=== PATIENT | female | born 1940 | race Caucasian/White ===

== ENCOUNTER 2025-03-21 10:13 | Emergency (ER) | payer MEDICARE, BC, SELFPAY ==
--- NOTE | ~2025-03-21 | XR_ITS ---
XR chest 1V portable Ordering provider: Jemma Richter PA-C History: 85 years Female with . AMS . Comparison: None. FINDINGS: MEDIASTINUM: The cardiac silhouette is slightly enlarged. Congestive amber. LUNGS: No effusions or pneumothorax. Bilateral interstitial and alveolar opacification suggestive of pulmonary edema versus pneumonia. OTHER: No free air under the diaphragm. Degenerative changes of the spine. IMPRESSION: Bilateral pneumonia versus pulmonary edema. Reviewed, dictated and finalized at location A.
--- NOTE | ~2025-03-21 | CT_ITS ---
CT brain wo con Ordering provider: Valentin Corral MD History: 85 years Female with . seizure, Hx CVA . Comparison: None. Technique: CT of the head without contrast. Radiation reduction technique utilized.The dose-length pr oduct was 605.33 mGy-cm. FINDINGS: BRAIN PARENCHYMA AND CSF SPACES: Mild leukoaraiosis and diffuse cortical atrophy. Mild atheromatous d isease. Hypodensity in both occipital areas more on the right side which may indicate subacute/chroni c infarct. No midline shift, mass effect or hemorrhage. The brain parenchyma and CSF spaces are othe rwise normal. VISUALIZED PARANASAL SINUSES: Bilateral maxillary sinus disease. MASTOIDS: Well aerated. BONES: The bones appear intact. SOFT TISSUES: Visualized nasopharynx is normal. Superficial soft tissues are normal. IMPRESSION: Hypodensities in the right and left occipital lobes which are suggestive of subacute/chronic infarcts . MRI is advised. Brain atrophy with deep white matter ischemic changes. Reviewed, dictated and finalized at location A. IMPRESSION: Hypodensities in the right and left occipital lobes which are suggestive of sub acute/chronic infarcts. MRI is advised. Brain atrophy with deep white matter ischemic changes.
[2025-03-21 10:15] VITALS: BP 167/110; PULSE 154; RESP 23
--- NOTE | 2025-03-21 10:25 | ECG_ITS ---
Test Date: 2025-03-21 10:19:17 Measurements Intervals [place] Rate: 133 P: 0 MA: 0 QRS: -57 QRSD: 89 T: 124 QT: 297 QTc: 443 Interpretive Statements ATRIAL FIBRILLATION WITH RAPID VENTRICULAR RESPONSE WITH ABERRANT CONDUCTION OR VENTRICULAR PREMATURE COMPLEXES LEFT ANTERIOR FASCICULAR BLOCK BORDERLINE ST-T WAVE ABNORMALITY- ANTEROLAT/HIGH LAT LEADS BASELINE ARTIFACT- I, II, III, AVR, AVL, AVF, V3 ABNORMAL ECG No previous ECG available for comparison Electronically Signed On 03-21-2025 13:06:01 CDT by William Langston D.O.
[2025-03-21 10:34] LABS: Basophils Percent Auto 0.1 % (0.2-1.2); Eosinophils Percent Auto 0.1 % (0-4.4); Hematocrit 44.7 % (37.0-47.0); Hemoglobin 14.6 g/dL (12.0-15.0); Immature Granulocyte Absolute 0.05 K/mm3 (0.00-0.031); Immature Granulocyte Percent A 0.3 % (0-0.5); Lymphocytes Absolute Auto 1.92 K/mm3 (0.9-3.2); Lymphocytes Percent Auto 13.4 % (18.3-44.2); Mean Corpuscular HGB Conc 32.7 g/dl (32-36); Mean Corpuscular Hemoglobin 27.2 pg (26-34); Mean Corpuscular Volume 83.4 fl (80-100); Mean Platelet Volume 10.9 fl (7.4-10.4); Monocytes Absolute Auto 0.4 K/mm3 (0.1-0.6); Monocytes Percent Auto 2.7 % (2.6-8.5); Neutrophils Absolute Auto 11.9 K/mm3 (1.3-6.7); Neutrophils Percent Auto 83.4 % (45.5-73.1); Platelet Count Result 301 k/mm3 (150-375); Red Blood Count 5.36 M/mm3 (4.2-5.4); Red Cell Distribution Width 13.8 % (11.5-14.5); White Blood Count 14.3 K/mm3 (4.5-10.0)
[2025-03-21 10:37] VITALS: O2SAT 95
[2025-03-21 10:44] LABS: Alanine Aminotransferase 39 U/L (6-35); Albumin Level 4.4 g/dL (3.5-5.1); Alkaline Phosphatase 94 U/L (38-126); Anion Gap 28 mmol/L (4-12); Bilirubin,Total 0.9 mg/dL (0.2-1.3); Blood Urea Nitrogen 11 mg/dL (7-17); Calcium 10.3 mg/dL (8.4-10.2); Carbon Dioxide 9 mmol/L (22-30); Chloride 103 mmol/L (98-107); Estimated Glomerular Filt Rate > 60; Glucose 269 mg/dL (65-110); Potassium 3.4 mmol/L (3.4-5.0); Sodium 140 mmol/L (137-145); Total Protein 7.6 g/dL (6.3-8.2)
[2025-03-21 11:49] LABS: Aspartate Amino Transferase 57 U/L (14-36)
[2025-03-21] MEDS: SODIUM CHLORIDE 0.9% IV 1,000 ML 999 ML IV CONT (12:12)
[2025-03-21 12:31] LABS: Lactic Acid Reflex 5.2 mmol/L (0.7-2.0)
[2025-03-21] MEDS: MORPHINE SULFATE (*CRX) 4 MG/ML INJ IV PUSH ×2 (12:35→14:49)
[2025-03-21 12:38] LABS: Add Urine Microscopic? YES; Appearance Urine Clear (Clear); Bacteria Urine None Seen /hpf; Bilirubin Urine Negative (Negative); Blood Urine Negative (Negative); Color Urine Yellow (Yellow); Glucose Urine UA 2+ mg/dL (Negative); Ketones Urine 4+ mg/dL (Negative); Leukocyte Esterase Ur Negative LEU/UL (Negative); Nitrate Urine Negative (Negative); Protein Urine 1+ mg/dL (Negative); RBC Urine 0-2 /hpf (0-2); Specific Grav Ur 1.018 (1.001-1.035); Squamous Epithelial Cell Urine Occasional /hpf (Few); WBC Urine 0-5 /hpf (0-3)
[2025-03-21 12:40] VITALS: O2SAT 76; O2SAT 93
--- NOTE | 2025-03-21 12:50 | ED_ITS ---
HPI - Seizure General Chief Complaint: Seizure Stated Complaint: seizure Time Seen by Provider: 03/21/25 10:57 History of Present Illness HPI Narrative: 85-year-old female with history of reported TIA and hypertension presents to the ED via EMS from [facility] with reported possible seizure. Per EMS the patient's right hand was reportedly ?convulsing?. Patient has no history of seizures. She is normally A&O x1 at baseline. Per nursing notes the patient has deteriorated over the past week. Patient was also found to be be in AFib with RVR and route which is new. Arrival to the ED the patient will open her eyes to verbal stimuli but will not follow commands. She is unable to provide any history. She presents with paperwork from [place] the indicates she is DNR/DNI and comfort care only. Related Data Allergies Allergy/AdvReac Type Severity Reaction Status Date / Time No Known Allergies Allergy Verified 03/21/25 10:36 Review of Systems 2 Review of Systems: All systems reviewed & are unremarkable except as noted in HPI and below Exam 2 Narrative: GENERAL: Ill-appearing, spontaneously opens eyes when I say her name, not answering any questions, not following commands HEAD: Normocephalic, atraumatic. EYES: PERRLA and EOMI. ENT: Nares clear, no rhinorrhea or epistaxis. Mucous membranes moist. NECK: Supple. CHEST: Clear to auscultation. No respiratory distress. HEART: Regular rate and rhythm. No murmur heard. Normal peripheral pulses. ABDOMEN: Tenderness to the lower abdomen on palpation with her moaning and guarding. No rebound or rigidity. Abdomen was soft EXTREMITIES: Normal range of motion. Bilateral lower extremity pitting edema SKIN: Warm, dry, no rash. NEURO: Alert and oriented x0. Moving all extremities spontaneously Course Vital Signs Vital signs: Vital Signs Pulse Rate 154 H 03/21/25 10:15 Respiratory Rate 23 H 03/21/25 10:15 Blood Pressure 167/110 H 03/21/25 10:15 Pulse Rate 112 H 03/21/25 15:43 Respiratory Rate 14 03/21/25 15:43 Blood Pressure 126/84 03/21/25 15:43 Pulse Oximetry 98 03/21/25 15:43 Oxygen Delivery Nasal Cannula 03/21/25 12:40 Oxygen Flow Rate 4 03/21/25 12:40 MDM - Seizure MDM Narrative Medical decision making narrative: 85-year-old female who is DNR/DNI and comfort care only presents via EMS from [facility] with concerns for seizure. Upon arrival to the ED patient has hypertension, she is in AFib with RVR with heart rate of 154. Patient is normally A&O x1, however spontaneously opens her eyes to her name but is not following any commands. She does have abdominal tenderness with guarding on exam. I discussed presentation on the phone with patient's POA/daughter, Ashlie Marte, who is on her way to the hospital. We discussed possible sources patient's presentation which included intracranial hemorrhage, CVA, sepsis, ACS, the intra-abdominal pathology such as bowel perforation and other. She is requesting that we check a urinalysis, chest xr and troponin, however would like to wait for make further decisions regarding patient's workup until she arrives to the ER. Patient's labs per protocol by nursing staff along with a CT scan. Lab work shows leukocytosis of 14.3. Chemistries with a bicarb of 9 anion gap of 28, glucose of 269, lactic of 5.2, troponin of 1.910. CT brain shows hypodensities in the right and left occipital lobes which are suggestive of subacute/chronic infarcts. There is brain atrophy with the deep white matter ischemic changes. Patient's daughter Ashlie is now at bedside with her Nino and patient's sister Erica. The patient is now agitated, yelling out in pain. She was given morphine and Ativan. All of the family are in agreement to discontinue care and workup and abide by patient's comfort care requests. They are agreeable to consulting care coordination for hospice placement. branch employment coordinator, Yue, at bedside. Discussed with family who would like the patient to be returned back to [place] for hospice. Yue discussed with [place] who agrees to put the patient on their hospice service with [facility] when she returns to their facility. The patient has been given morphine and Ativan for comfort. She was transferred back to [place] where they are awaiting her return to place her on hospice upon her arrival. Lab Data 03/21/25 10:28 03/21/25 10:28 Labs: Lab Results 03/21/25 03/21/25 03/21/25 Range/Units 10:28 12:10 12:27 WBC 14.3 H (4.5-10.0) K/mm3 RBC 5.36 (4.2-5.4) M/mm3 Hgb 14.6 (12.0-15.0) g/dL Hct 44.7 (37.0-47.0) % MCV 83.4 (80-100) fl MCH 27.2 (26-34) pg MCHC 32.7 (32-36) g/dl RDW 13.8 (11.5-14.5) % Plt Count 301 (150-375) k/mm3 MPV 10.9 H (7.4-10.4) fl Immature Gran % (Auto) 0.3 (0-0.5) % Neut % (Auto) 83.4 H (45.5-73.1) % Lymph % (Auto) 13.4 L (18.3-44.2) % [place] % (Auto) 2.7 (2.6-8.5) % Eos % (Auto) 0.1 (0-4.4) % Baso % (Auto) 0.1 L (0.2-1.2) % Lymph # (Auto) 1.92 (0.9-3.2) K/mm3 [place] # (Auto) 0.4 (0.1-0.6) K/mm3 Eos # (Auto) 0.0 (0-0.3) K/mm3 Baso # (Auto) 0.0 (0.0-0.1) K/mm3 Abs Immat Gran (auto) 0.05 H (0.00-0.031) K/mm3 Absolute Neuts (auto) 11.9 H (1.3-6.7) K/mm3 Absolute Nucleated RBC 0.000 (0.0-0.012) K/mm3 Nucleated RBC % 0.0 (0.0-0.2) % Sodium 140 (137-145) mmol/L Potassium 3.4 (3.4-5.0) mmol/L Chloride 103 (98-107) mmol/L Carbon Dioxide 9 L (22-30) mmol/L Anion Gap 28 H (4-12) mmol/L BUN 11 (7-17) mg/dL Creatinine 0.78 (0.7-1.0) mg/dL Estim Creat Clear Calc Not Reportable Estimated GFR > 60 (59 - ) Glucose 269 H (65-110) mg/dL Lactic Acid 5.2 H* (0.7-2.0) mmol/L Calcium 10.3 H (8.4-10.2) mg/dL Total Bilirubin 0.9 (0.2-1.3) mg/dL AST 57 H (14-36) U/L ALT 39 H (6-35) U/L Alkaline Phosphatase 94 (38-126) U/L Troponin I 1.910 H* (0.000-0.034) ng/mL Total Protein 7.6 (6.3-8.2) g/dL Albumin 4.4 (3.5-5.1) g/dL Urine Color Yellow (Yellow) Urine Appearance Clear (Clear) Urine pH 5.0 (5.0-9.0) Ur Specific [place] 1.018 (1.001-1.035) Urine Protein 1+ H (Negative) mg/dL Urine Glucose (UA) 2+ H (Negative) mg/dL Urine Ketones 4+ H (Negative) mg/dL Ur Blood (Man) Negative (Negative) Urine Nitrate Negative (Negative) Urine Bilirubin Negative (Negative) Urine Urobilinogen 1.0 (<2.0) mg/dL Leukocyte Esterase Rfl Negative (Negative) OLVIN/UL Urine RBC 0-2 (0-2) /hpf Urine WBC 0-5 (0-3) /hpf Ur Squamous Epith Cells Occasional (Few) /hpf Urine Bacteria None seen /hpf Urine Casts 3-5 Critical Care Time Critical Care Time Total Critical Care Time: 31 Discharge Plan Discharge Clinical Impression: Atrial fibrillation with RVR Sepsis Qualifiers: Sepsis type: sepsis due to unspecified organism Sepsis acute organ dysfunction status: unspecified Qualified Code(s): A41.9 - Sepsis, unspecified organism Patient Disposition: [facility]/Asst Living Condition: Terminal Instructions: Antibiotic Form Additional Instructions: Bere is leaving the emergency department with plans to join hospice when she returns to [place]. Patient Language: Tajik Follow-up/Referrals: UNKNOWN,DOCTOR [Primary Care Provider] -
[2025-03-21] MEDS: LORazepam INJ (*CRX) 2 MG/ML VIAL IV PUSH ×2 (12:53→14:50)
[2025-03-21 13:05] VITALS: BP 148/92; PULSE 109; RESP 18; O2SAT 92
[2025-03-21 14:14] LABS: Reflex Lactic Acid Yes or No Add Lactic
[2025-03-21 15:43] VITALS: BP 126/84; PULSE 112; RESP 14; O2SAT 98
--- NOTE | 2025-03-21 15:56 | PCCCNOTE ---
Called to the ED to assist family with putting pt on Hospice care. Call placed to [facility], where pt currently resides. They will let the pt stay there on hospice. Pt. daughter Ashlie is the POA and is going to use [facility]. I contacted Beatriz from Hospice, faxed pts information to her from the ED. Facility and hospice notified of ETA for the ambulance to take her back to [place]. Family updated on plan. No further questions.
== END 2025-03-21 15:46 ==
PROVIDERS: Emergency Medicine; Emergency Provider Physician Assistant
DX: A41.9 Sepsis, unspecified organism (principal); I48.91 Unspecified atrial fibrillation; R56.9 Unspecified convulsions; I10 Essential (primary) hypertension; D72.829 Elevated white blood cell count, unspecified; Z66 Do not resuscitate
CPT/HCPCS: 36415; 70450; 71045; 80053; 81001; 83605; 84484; 85025; 93005; 96361; 96374; 96375; 96376; 99284; J2060; J2270; J7030